=== PATIENT | male | born 1990 | race Caucasian/White ===

== ENCOUNTER 2016-03-08 20:39 | Emergency (ER) | payer BC ==
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
[2016-03-08 20:46] VITALS: BP 139/75
== END 2016-03-08 23:45 | disposition left against medical advice (07) ==
LOC: ER 20:39
DX: H57.10 Ocular pain, unspecified eye (principal); Z53.20 Procedure and treatment not carried out because of patient's decision for unspecified reasons
CPT/HCPCS: 99281